=== PATIENT | female | born 1935 | race Caucasian/White ===

== ENCOUNTER 2017-01-04 13:50 | Emergency (ER) | payer OTHER ==
[~2017-01-04] VITALS: Ht 167.6 cm; Wt 64.0 kg
[~2017-01-04 13:50] MED LIST: ALPR1TAB2; ALPR1TAB2 PO; ASPI-515 PO; DABI150C PO; DIGO250T; GABA300C10 PO; HYDR-3240 PO; INSU100V8; MAGN400T26 PO; METF100010 PO; METO-95 PO; NATE120T2 PO; NICO1PAT5 TD; ONDA4TAB13 SL; PANT20TA3; VANC1VIA3 PO; [UNRECOGNIZED DRUG - REMARK] PO
[2017-01-04] MEDS ORDERED: HYDROcodone/APAP 5/325 TABLET PO ONE (15:00)
[2017-01-04] MEDS ORDERED: HYDROcodone/APAP 5/325 TABLET ONE (15:17)
[2017-01-04 16:43] VITALS: BP 139/66
== END 2017-01-04 17:17 | disposition home or self-care (01) ==
LOC: ED 17:15
DX: S20.212A Contusion of left front wall of thorax, initial encounter (principal); M54.89 Other dorsalgia; M79.89 Other specified soft tissue disorders; E11.9 Type 2 diabetes mellitus without complications; I10 Essential (primary) hypertension; Z95.0 Presence of cardiac pacemaker; W06.XXXA Fall from bed, initial encounter; Y93.89 Activity, other specified; Y99.8 Other external cause status; Y92.098 Other place in other non-institutional residence as the place of occurrence of the external cause
CPT/HCPCS: 99284

== ENCOUNTER 2017-01-09 20:52 | Emergency (ER) | payer OTHER ==
[~2017-01-09] VITALS: Ht 167.6 cm; Wt 65.0 kg
[2017-01-09] MEDS ORDERED: SODIUM CHLORIDE FLUSH 10ML SYR IVF ONE (22:00)
[2017-01-09] MEDS ORDERED: SODIUM CHLORIDE 0.9% 1,000ML IVBOLUS ONE (22:00)
[2017-01-09] MEDS ORDERED: ONDANSETRON 2MG/ML, 2ML IVPush ONE (22:00)
[2017-01-09 22:09] LABS: HEMOGLOBIN 11.4 g/dL (11.7-16.4)
[2017-01-09 22:21] LABS: ASPARTATE AMINO TRANSFERASE 10 U/L (15-37); BLOOD UREA NITROGEN 19 mg/dL (7-18)
[2017-01-09 22:27] LABS: IS PT STATUS REG ER OR PRE ER? YES
[2017-01-09] MEDS ORDERED: HYDROcodone/APAP 5/325 TABLET ONE (23:55)
[2017-01-10] MEDS ORDERED: HYDROcodone/APAP 5/325 TABLET PO ONE
[2017-01-10 00:14] VITALS: BP 135/79
== END 2017-01-10 00:20 | disposition home or self-care (01) ==
LOC: ED 01-10 00:19
DX: R19.7 Diarrhea, unspecified (principal); R11.0 Nausea; R10.9 Unspecified abdominal pain; I10 Essential (primary) hypertension; E11.9 Type 2 diabetes mellitus without complications
CPT/HCPCS: 36415; 74022; 80053; 81001; 83690; 84484; 85025; 87086; 96360; 99285; J7030

== ENCOUNTER 2018-09-04 10:13 | Inpatient (IN) | payer OTHER ==
[~2018-09-04] VITALS: Ht 162.6 cm; Wt 71.7 kg
[~2018-09-04 10:13] MED LIST changes: -DIGO250T; +DIGO250T PO; +NICO-487 TD; -NICO1PAT5 TD
[2018-09-04] MEDS ORDERED: SODIUM CHLORIDE FLUSH 10ML SYR IVF ONE (10:30)
[2018-09-04 10:57] LABS: BASOPHILS # (AUTO) 0.05 x10^3/uL (0-0.1); BASOPHILS % (AUTO) 0 % (0-1); EOSINOPHILS % (AUTO) 1 % (1-7); LYMPHOCYTES # (AUTO) 1.35 x10^3/uL (1-3.4); LYMPHOCYTES % (AUTO) 12 % (22-44); MD NO; MEAN CORPUSCULAR HEMOGLOBIN 29.7 pg (27.0-34.8); MEAN CORPUSCULAR HGB CONC 32.5 g/dL (32.4-35.8); MEAN CORPUSCULAR VOLUME 91.3 fL (80-100); MEAN PLATELET VOLUME 8.4 fL (7.4-10.4); MONOCYTES # (AUTO) 0.64 x10^3/uL (0.2-0.8); MONOCYTES % (AUTO) 6 % (2-9); NEUTROPHILS # (AUTO) 9.33 x10^3/uL (1.8-6.8); NEUTROPHILS % (AUTO) 81 % (42-75); PLATELET COUNT 342 x10^3/uL (130-400); RED CELL DISTRIBUTION WIDTH 16.3 % (9.6-15.2)
[2018-09-04] MEDS ORDERED: SODIUM CHLORIDE 0.9% 1,000ML IVBOLUS ONE (11:00)
[2018-09-04] MEDS ORDERED: GABA600T2 PO (11:01)
[2018-09-04] MEDS ORDERED: POTA10TA57 PO (11:01)
[2018-09-04] MEDS ORDERED: GLIM4TAB2 PO (11:01)
[2018-09-04] MEDS ORDERED: METF500T17 PO (11:01)
[2018-09-04 11:04] LABS: INTERNATIONAL NORMALIZED RATIO 1.05 (0.93-1.1); PROTHROMBIN TIME 10.9 Seconds (9.6-11.5)
[2018-09-04 11:07] LABS: ALBUMIN 3.4 g/dL (3.4-5.0); ANION GAP 8 mmol/L (5-15); CALCIUM 8.9 mg/dL (8.5-10.1); CHLORIDE 108 mmol/L (98-107)
[2018-09-04 11:11] LABS: ALANINE AMINOTRANSFERASE 15 U/L (12-78); ALKALINE PHOSPHATASE 63 U/L (45-117); CREATINE KINASE, TOTAL 169 U/L (26-192); CREATININE 0.84 mg/dL (0.55-1.02); TOTAL PROTEIN 8.3 g/dL (6.4-8.2); TROPONIN I < 0.015 ng/mL (0.000-0.045)
[2018-09-04] MEDS ORDERED: FURO-93 PO (11:32)
[2018-09-04] MEDS ORDERED: NS + 20MEQ KCL 1,000 ML IV SCH (12:36)
[2018-09-04] MEDS ORDERED: ONDANSETRON 2MG/ML, 2ML IVPush PRN (13:00)
[2018-09-04] MEDS ORDERED: ACETAMINOPHEN 325 MG TABLET PO PRN (13:00)
[2018-09-04] MEDS ORDERED: DOCUSATE 100 MG CAPSULE PO PRN (13:00)
[2018-09-04] MEDS ORDERED: DEXTROSE 4 GM TAB.CHEW PO PRN (13:00)
[2018-09-04] MEDS ORDERED: HYDROcodone/APAP 5/325 TABLET PO PRN (13:00)
[2018-09-04] MEDS ORDERED: GLUCAGON 1 MG IM PRN (13:00)
[2018-09-04] MEDS ORDERED: morphine SULFATE 10 MG/ML, 1ML IVPush PRN (13:00)
[2018-09-04] MEDS ORDERED: POLYETHYLENE GLYCOL 17 GM PACKET PO PRN (13:00)
[2018-09-04] MEDS ORDERED: DEXTROSE 50%, 50ML SYRINGE IVPush PRN (13:00)
[2018-09-04] MEDS ORDERED: hydrALAzine 20 MG/ML, 1ML IV PRN (13:30)
[2018-09-04] MEDS ORDERED: LABETALOL 5MG/ML, 20ML IVPush PRN (13:30)
[2018-09-04] MEDS ORDERED: ENALAPRILAT 1.25 MG/ML, 2ML IV PRN (13:30)
[2018-09-04] MEDS ORDERED: DIGOXIN 0.25 MG/ML, 2ML IVPush ONE (13:30)
[2018-09-04] MEDS ORDERED: DIGOXIN 0.25 MG/ML, 2ML ONE (14:02)
[2018-09-04 14:38] VITALS: BP 153/79
[2018-09-04] MEDS: GABAPENTIN 300 MG CAPSULE PO SCH ×2 (15:36→21:47)
[2018-09-04] MEDS: FUROSEMIDE 20 MG/2 ML IV SCH (15:58)
[2018-09-04] MEDS: DIGOXIN 0.25 MG TABLET PO SCH (15:58)
[2018-09-04] MEDS: METOPROLOL SUCCINATE 100 MG TAB.ER.24H PO SCH (16:01)
[2018-09-04] MEDS: NICOTINE 7 MG/24 HR PATCH.TD24 TD SCH (16:01)
[2018-09-04] MEDS: ASPIRIN 81 MG TABLET EC PO SCH (16:01)
[2018-09-04 16:15] LABS: CULTURE INDICATED? NO; MICROSCOPIC AUTO
[2018-09-04 17:10] VITALS: BP 178/94
[2018-09-04] MEDS: INSULIN LISPRO 100 UNITS/ML, PEN SQ-INSULIN SCH ×2 (17:45→21:48)
[2018-09-04 18:41] VITALS: BP 144/77
[2018-09-04] MEDS: SODIUM CHLORIDE FLUSH 10ML SYR IVF SCH (20:53)
[2018-09-04] MEDS: GLIMEPIRIDE 4 MG TABLET PO SCH (21:47)
[2018-09-04] MEDS: DABIGATRAN 150 MG CAPSULE PO SCH (21:48)
[2018-09-05 02:08] VITALS: BP 131/66
[2018-09-05 05:27] LABS: ANION GAP 9 mmol/L (5-15); CHLORIDE 112 mmol/L (98-107)
[2018-09-05 05:37] LABS: CALCIUM 7.7 mg/dL (8.5-10.1); CREATININE 0.74 mg/dL (0.55-1.02); TROPONIN I 0.016 ng/mL (0.000-0.045)
[2018-09-05] MEDS: INSULIN LISPRO 100 UNITS/ML, PEN SQ-INSULIN SCH ×4 (07:00→20:40)
[2018-09-05 07:53] VITALS: BP 116/73
[2018-09-05] MEDS: FUROSEMIDE 20 MG/2 ML IV SCH (08:28)
[2018-09-05] MEDS: SODIUM CHLORIDE FLUSH 10ML SYR IVF SCH ×2 (08:29→20:39)
[2018-09-05] MEDS: SENNA/DOCUSATE TABLET PO SCH (09:02)
[2018-09-05] MEDS: DIGOXIN 0.25 MG TABLET PO SCH (09:02)
[2018-09-05] MEDS: GABAPENTIN 300 MG CAPSULE PO SCH ×3 (09:02→20:40)
[2018-09-05] MEDS: METOPROLOL SUCCINATE 100 MG TAB.ER.24H PO SCH (09:02)
[2018-09-05] MEDS: GLIMEPIRIDE 4 MG TABLET PO SCH ×2 (09:02→20:40)
[2018-09-05] MEDS: DABIGATRAN 150 MG CAPSULE PO SCH (09:02)
[2018-09-05] MEDS: MAGNESIUM OXIDE 400 MG TABLET PO SCH ×2 (09:02→20:40)
[2018-09-05] MEDS: ASPIRIN 81 MG TABLET EC PO SCH (09:02)
[2018-09-05 13:47] VITALS: BP 133/62
[2018-09-05 14:58] LABS: HEMOGLOBIN A1C 9.1 % (4.2-6.3)
[2018-09-05] MEDS: NICOTINE 7 MG/24 HR PATCH.TD24 TD SCH (16:00)
[2018-09-05 18:58] LABS: CLOSTRIDIUM DIFFICILE ANTIGEN POSITIVE; CLOSTRIDIUM DIFFICILE TOXIN NEGATIVE (Negative)
[2018-09-05 19:30] VITALS: BP 135/62
[2018-09-06 01:42] LABS: BASOPHILS # (AUTO) 0.06 x10^3/uL (0-0.1); BASOPHILS % (AUTO) 1 % (0-1); EOSINOPHILS % (AUTO) 2 % (1-7); LYMPHOCYTES # (AUTO) 2.16 x10^3/uL (1-3.4); LYMPHOCYTES % (AUTO) 26 % (22-44); MD NO; MEAN CORPUSCULAR HEMOGLOBIN 29.8 pg (27.0-34.8); MEAN CORPUSCULAR HGB CONC 33.2 g/dL (32.4-35.8); MEAN CORPUSCULAR VOLUME 89.9 fL (80-100); MEAN PLATELET VOLUME 7.6 fL (7.4-10.4); MONOCYTES # (AUTO) 0.65 x10^3/uL (0.2-0.8); MONOCYTES % (AUTO) 8 % (2-9); NEUTROPHILS # (AUTO) 5.24 x10^3/uL (1.8-6.8); NEUTROPHILS % (AUTO) 63 % (42-75); PLATELET COUNT 321 x10^3/uL (130-400); RED BLOOD COUNT 3.77 x10^6/uL (3.82-5.3); RED CELL DISTRIBUTION WIDTH 16.1 % (9.6-15.2)
[2018-09-06 01:52] LABS: ALANINE AMINOTRANSFERASE 11 U/L (12-78); ALBUMIN 2.7 g/dL (3.4-5.0); ANION GAP 10 mmol/L (5-15); CALCIUM 7.8 mg/dL (8.5-10.1); CHLORIDE 109 mmol/L (98-107); CREATININE 0.71 mg/dL (0.55-1.02)
[2018-09-06 01:55] LABS: ALKALINE PHOSPHATASE 46 U/L (45-117); BILIRUBIN,TOTAL 0.6 mg/dL (0.2-1.0); TOTAL PROTEIN 7.1 g/dL (6.4-8.2)
[2018-09-06 01:57] VITALS: BP 121/77
[2018-09-06] MEDS: INSULIN LISPRO 100 UNITS/ML, PEN SQ-INSULIN SCH ×4 (08:04→20:46)
[2018-09-06 08:11] VITALS: BP 117/74
[2018-09-06 10:04] VITALS: BP 138/82
[2018-09-06] MEDS: GABAPENTIN 300 MG CAPSULE PO SCH ×3 (10:04→20:42)
[2018-09-06] MEDS: GLIMEPIRIDE 4 MG TABLET PO SCH ×2 (10:05→20:42)
[2018-09-06] MEDS: METOPROLOL SUCCINATE 100 MG TAB.ER.24H PO SCH (10:05)
[2018-09-06] MEDS: ASPIRIN 81 MG TABLET EC PO SCH (10:05)
[2018-09-06] MEDS: MAGNESIUM OXIDE 400 MG TABLET PO SCH (10:06)
[2018-09-06] MEDS: SENNA/DOCUSATE TABLET PO SCH (10:06)
[2018-09-06] MEDS: DIGOXIN 0.25 MG TABLET PO SCH (10:06)
[2018-09-06] MEDS: SODIUM CHLORIDE FLUSH 10ML SYR IVF SCH ×2 (10:06→20:47)
[2018-09-06 13:23] LABS: MICROSCOPIC INDICATED
[2018-09-06 13:32] VITALS: BP 127/75
[2018-09-06] MEDS: NICOTINE 7 MG/24 HR PATCH.TD24 TD SCH (16:12)
[2018-09-06 18:39] VITALS: BP 121/69
[2018-09-07 00:39] VITALS: BP 123/72
[2018-09-07 02:07] LABS: BASOPHILS # (AUTO) 0.07 x10^3/uL (0-0.1); BASOPHILS % (AUTO) 1 % (0-1); EOSINOPHILS # (AUTO) 0.23 x10^3/uL (0-0.4); EOSINOPHILS % (AUTO) 3 % (1-7); LYMPHOCYTES # (AUTO) 2.23 x10^3/uL (1-3.4); LYMPHOCYTES % (AUTO) 26 % (22-44); MD NO; MEAN CORPUSCULAR HEMOGLOBIN 30.5 pg (27.0-34.8); MEAN CORPUSCULAR HGB CONC 33.8 g/dL (32.4-35.8); MEAN CORPUSCULAR VOLUME 90.2 fL (80-100); MEAN PLATELET VOLUME 8.2 fL (7.4-10.4); MONOCYTES # (AUTO) 0.67 x10^3/uL (0.2-0.8); MONOCYTES % (AUTO) 8 % (2-9); NEUTROPHILS % (AUTO) 63 % (42-75); PLATELET COUNT 327 x10^3/uL (130-400); RED BLOOD COUNT 3.86 x10^6/uL (3.82-5.3); RED CELL DISTRIBUTION WIDTH 15.8 % (9.6-15.2)
[2018-09-07 02:12] LABS: ALANINE AMINOTRANSFERASE 12 U/L (12-78); ALBUMIN 2.8 g/dL (3.4-5.0); ANION GAP 10 mmol/L (5-15); CALCIUM 8.2 mg/dL (8.5-10.1); CHLORIDE 109 mmol/L (98-107); CREATININE 0.77 mg/dL (0.55-1.02)
[2018-09-07 02:14] LABS: ALKALINE PHOSPHATASE 50 U/L (45-117); BILIRUBIN,TOTAL 0.6 mg/dL (0.2-1.0); TOTAL PROTEIN 7.3 g/dL (6.4-8.2)
[2018-09-07] MEDS: INSULIN LISPRO 100 UNITS/ML, PEN SQ-INSULIN SCH ×4 (07:00→23:01)
[2018-09-07 07:50] VITALS: BP 145/90
[2018-09-07] MEDS: GABAPENTIN 300 MG CAPSULE PO SCH ×3 (08:58→22:26)
[2018-09-07] MEDS: METOPROLOL SUCCINATE 100 MG TAB.ER.24H PO SCH (08:58)
[2018-09-07] MEDS: DIGOXIN 0.25 MG TABLET PO SCH (08:58)
[2018-09-07] MEDS: GLIMEPIRIDE 4 MG TABLET PO SCH ×2 (08:58→22:26)
[2018-09-07] MEDS: CEFTRIAXONE PMX 1GM/50ML 50 ML IV SCH (08:59)
[2018-09-07] MEDS: ASPIRIN 81 MG TABLET EC PO SCH (08:59)
[2018-09-07] MEDS: SENNA/DOCUSATE TABLET PO SCH (09:00)
[2018-09-07] MEDS: SODIUM CHLORIDE FLUSH 10ML SYR IVF SCH ×2 (09:00→22:26)
[2018-09-07] MEDS ORDERED: DILTIAZEM 60 MG TABLET PO ONE (11:00)
[2018-09-07] MEDS: SODIUM CHLORIDE 0.9% 500 ML IV SCH ×2 (13:00→15:00)
[2018-09-07 13:38] VITALS: BP 127/70
[2018-09-07] MEDS: NICOTINE 7 MG/24 HR PATCH.TD24 TD SCH (16:00)
[2018-09-07] MEDS: SODIUM CHLORIDE 0.9% 1,000 ML IV SCH (16:55)
[2018-09-07 19:38] VITALS: BP 132/74
[2018-09-07] MEDS: DABIGATRAN 150 MG CAPSULE PO SCH (22:26)
[2018-09-08] MEDS: SODIUM CHLORIDE 0.9% 1,000 ML IV SCH ×2 (00:19→08:58)
[2018-09-08 01:09] VITALS: BP 129/68
[2018-09-08 01:51] LABS: ANION GAP 10 mmol/L (5-15); CALCIUM 7.9 mg/dL (8.5-10.1); CHLORIDE 111 mmol/L (98-107); CREATININE 0.86 mg/dL (0.55-1.02)
[2018-09-08] MEDS: INSULIN LISPRO 100 UNITS/ML, PEN SQ-INSULIN SCH ×3 (07:00→16:00)
[2018-09-08 07:02] VITALS: BP 138/82
[2018-09-08 08:50] VITALS: BP 153/74
[2018-09-08] MEDS: DIGOXIN 0.25 MG TABLET PO SCH (08:54)
[2018-09-08] MEDS: GLIMEPIRIDE 4 MG TABLET PO SCH (08:55)
[2018-09-08] MEDS: GABAPENTIN 300 MG CAPSULE PO SCH ×2 (08:55→16:56)
[2018-09-08] MEDS: METOPROLOL SUCCINATE 100 MG TAB.ER.24H PO SCH (08:55)
[2018-09-08] MEDS: ASPIRIN 81 MG TABLET EC PO SCH (08:55)
[2018-09-08] MEDS: DABIGATRAN 150 MG CAPSULE PO SCH (08:56)
[2018-09-08] MEDS: SENNA/DOCUSATE TABLET PO SCH (08:57)
[2018-09-08] MEDS: CEFTRIAXONE PMX 1GM/50ML 50 ML IV SCH (08:58)
[2018-09-08] MEDS: SODIUM CHLORIDE FLUSH 10ML SYR IVF SCH (08:59)
[2018-09-08] MEDS ORDERED: SULFAMETH./TRIMETHOPRIM DS 800MG/160MG TABLET PO SCH (11:00)
[2018-09-08] MEDS ORDERED: DIGO250T PO (11:00)
[2018-09-08] MEDS ORDERED: SULF-169 PO (11:00)
[2018-09-08 12:54] VITALS: BP 136/74
[2018-09-08] MEDS: NICOTINE 7 MG/24 HR PATCH.TD24 TD SCH (16:56)
== END 2018-09-08 17:42 | DRG 871 ==
LOC: SUATTDRO 12:34 → ED 12:49 → EDIP 12:50 → 5SO 14:03 → 3NE 09-07 16:09
PROVIDERS: ADMIT Family Medicine; ATTEND Family Medicine
PROC: 0T9B70Z Drainage of Bladder with Drainage Device, Via Natural or Artificial Opening (ICD-10-PCS; principal; 2018-09-04)
PROC: 4B02XSZ Measurement of Cardiac Pacemaker, External Approach (ICD-10-PCS; 2018-09-06)
DX: A41.9 Sepsis, unspecified organism (principal); G93.41 Metabolic encephalopathy; I47.2 Ventricular tachycardia; D68.69 Other thrombophilia; N39.0 Urinary tract infection, site not specified; Q21.1 Atrial septal defect; I08.2 Rheumatic disorders of both aortic and tricuspid valves; R62.7 Adult failure to thrive; E11.65 Type 2 diabetes mellitus with hyperglycemia; E78.5 Hyperlipidemia, unspecified; E83.42 Hypomagnesemia; F17.200 Nicotine dependence, unspecified, uncomplicated; I10 Essential (primary) hypertension; I48.2 Chronic atrial fibrillation; Z66 Do not resuscitate; Z79.01 Long term (current) use of anticoagulants; Z79.02 Long term (current) use of antithrombotics/antiplatelets; Z86.19 Personal history of other infectious and parasitic diseases; Z95.0 Presence of cardiac pacemaker; R31.9 Hematuria, unspecified; D73.89 Other diseases of spleen; Z79.899 Other long term (current) drug therapy; Z79.82 Long term (current) use of aspirin; W19.XXXA Unspecified fall, initial encounter; Y93.89 Activity, other specified; Y92.89 Other specified places as the place of occurrence of the external cause; Y99.8 Other external cause status; Z98.41 Cataract extraction status, right eye
CPT/HCPCS: 36415; 70450; 71045; 74178; 80048; 80053; 80162; 81001; 82550; 82607; 82962; 83036; 83605; 83735; 83880; 84100; 84443; 84484; 85014; 85018; 85025; 85610; 85730; 87086; 87324; 87493; 93005; 93306; 99285; G0378; J0696; J3480; J1160; J1815; J1940; J7030; J7040

== ENCOUNTER 2018-10-30 16:05 | Inpatient (IN) | payer OTHER ==
[~2018-10-30] VITALS: Ht 167.6 cm; Wt 71.6 kg
[~2018-10-30 16:05] MED LIST changes: +FURO-93 PO; +GABA600T7 PO; +GLIM4TAB2 PO; +METF500T17 PO; +POTA10TA57 PO; +SULF-169 PO
--- NOTE | 2018-10-30 16:19 | NUR ---
PATIENT BIB [facility], [facility] 2 DAYS AGO, NO LOC, DENIES HEAD/NECK PAIN, C/O 9/10 RIGHT ANKLE SWELLING/PAIN SINCE. PMH: DM, PACEMAKER, A-FIB. A+OX4. 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 PATIENT REFUSING IV AND PAIN MEDS FOR EMS PER [facility]. NADN. DENIES CP/SOB. AWAITING MD ORDERS, CALL LIGHT WITHIN REACH.
[2018-10-30] MEDS ORDERED: DILTIAZEM 5 MG/ML, 5ML ONE (16:43)
--- NOTE | 2018-10-30 16:47 | NUR ---
XRAY AT BEDSIDE.
[2018-10-30 16:54] LABS: BASOPHILS # (AUTO) 0.07 x10^3/uL (0-0.1); BASOPHILS % (AUTO) 1 % (0-1); EOSINOPHILS # (AUTO) 0.11 x10^3/uL (0-0.4); EOSINOPHILS % (AUTO) 2 % (1-7); LYMPHOCYTES # (AUTO) 1.83 x10^3/uL (1-3.4); LYMPHOCYTES % (AUTO) 31 % (22-44); MD NO; MEAN CORPUSCULAR HEMOGLOBIN 30.5 pg (27.0-34.8); MEAN CORPUSCULAR HGB CONC 33.5 g/dL (32.4-35.8); MEAN CORPUSCULAR VOLUME 91.1 fL (80-100); MEAN PLATELET VOLUME 8.6 fL (7.4-10.4); MONOCYTES # (AUTO) 0.71 x10^3/uL (0.2-0.8); MONOCYTES % (AUTO) 12 % (2-9); NEUTROPHILS # (AUTO) 3.14 x10^3/uL (1.8-6.8); NEUTROPHILS % (AUTO) 54 % (42-75); PLATELET COUNT 300 x10^3/uL (130-400); RED BLOOD COUNT 3.82 x10^6/uL (3.82-5.3); RED CELL DISTRIBUTION WIDTH 15.9 % (9.6-15.2)
[2018-10-30] MEDS ORDERED: DILTIAZEM 125 MG in DEXTROSE 5% 100 ML IV SCH (17:00)
[2018-10-30] MEDS ORDERED: DILTIAZEM 5 MG/ML, 5ML IV ONE (17:00)
[2018-10-30 17:06] LABS: INTERNATIONAL NORMALIZED RATIO 1.31 (0.93-1.1); PROTHROMBIN TIME 13.7 Seconds (9.6-11.5)
[2018-10-30 17:07] LABS: ALANINE AMINOTRANSFERASE 11 U/L (12-78); ALBUMIN 3.1 g/dL (3.4-5.0); ANION GAP 8 mmol/L (5-15); CALCIUM 8.3 mg/dL (8.5-10.1); CHLORIDE 109 mmol/L (98-107); CREATININE 1.16 mg/dL (0.55-1.02)
[2018-10-30 17:11] LABS: ALKALINE PHOSPHATASE 55 U/L (45-117); BILIRUBIN,TOTAL 0.8 mg/dL (0.2-1.0); TROPONIN I < 0.015 ng/mL (0.000-0.045)
[2018-10-30] MEDS ORDERED: SODIUM CHLORIDE 0.9% 1,000ML IVBOLUS ONE (17:30)
[2018-10-30] MEDS ORDERED: ONDANSETRON 2MG/ML, 2ML IVPush ONE (17:30)
[2018-10-30] MEDS ORDERED: ONDANSETRON 2MG/ML, 2ML ONE (17:45)
[2018-10-30] MEDS ORDERED: MORPHINE SULFATE 4 MG/ML, 1ML ONE (17:45)
[2018-10-30] MEDS: MORPHINE SULFATE 4 MG/ML, 1ML IVPush PRN ×2 (17:47→20:02)
[2018-10-30] MEDS ORDERED: DIGO125T PO (17:56)
[2018-10-30] MEDS ORDERED: SODIUM CHLORIDE FLUSH 10ML SYR IVF ONE (18:00)
[2018-10-30] MEDS ORDERED: SODIUM CHLORIDE FLUSH 10ML SYR IVF PRN (18:30)
[2018-10-30] MEDS ORDERED: ONDANSETRON 2MG/ML, 2ML IVPush PRN (19:00)
[2018-10-30] MEDS ORDERED: hydrALAzine 20 MG/ML, 1ML IVPush PRN (19:00)
[2018-10-30] MEDS ORDERED: ONDANSETRON ODT 4 MG PO PRN (19:00)
[2018-10-30] MEDS ORDERED: morphine SULFATE 10 MG/ML, 1ML IVPush PRN (19:00)
[2018-10-30] MEDS ORDERED: HYDROcodone/APAP 5/325 TABLET PO PRN (19:00)
--- NOTE | 2018-10-30 19:15 | NUR ---
STOPPING DILTIAZEM PER ORDER, FOR SBP LESS THAN 100. BP 96/48. HEART RATE IN 80S AND 90S AT THIS TIME.
[2018-10-30] MEDS ORDERED: DEXTROSE 4 GM TAB.CHEW PO PRN (19:30)
[2018-10-30] MEDS ORDERED: DEXTROSE 50%, 50ML SYRINGE IVPush PRN (19:30)
[2018-10-30] MEDS ORDERED: DILTIAZEM 125 MG in SODIUM CHLORIDE 0.9% 100 ML IV PRN (19:30)
[2018-10-30] MEDS ORDERED: GLUCAGON 1 MG IM PRN (19:30)
--- NOTE | 2018-10-30 20:28 | NUR ---
[facility] TELEPHONE HAND-OFF REPORT GIVEN TO SARAH SHEEHAN. PATIENT READY TO GO TO HOSPITAL ROOM.
[2018-10-30 21:01] VITALS: BP 106/61
[2018-10-30] MEDS: SODIUM CHLORIDE FLUSH 10ML SYR IVF SCH (21:35)
[2018-10-30] MEDS: metFORMIN 500 MG TABLET PO SCH (21:35)
[2018-10-30] MEDS: DABIGATRAN 150 MG CAPSULE PO SCH (21:35)
[2018-10-30] MEDS: NICOTINE 7 MG/24 HR PATCH.TD24 TD SCH (22:10)
[2018-10-30] MEDS: INSULIN LISPRO 100 UNITS/ML, PEN SQ-INSULIN SCH (22:11)
[2018-10-30] MEDS: POTASSIUM CHLORIDE 10 MEQ in SODIUM CHLORIDE 0.9% 1,000 ML IV SCH (22:11)
[2018-10-30] MEDS ORDERED: DILTIAZEM 125 MG in SODIUM CHLORIDE 0.9% 100 ML IV SCH (22:30)
[2018-10-30 23:04] LABS: TROPONIN I < 0.015 ng/mL (0.000-0.045)
[2018-10-31] VITALS (7 sets, daily range): BP systolic 86–100; BP diastolic 51–71
[2018-10-31] MEDS: ACETAMINOPHEN 325 MG TABLET PO PRN ×2 (04:06→11:48)
[2018-10-31 05:05] LABS: BASOPHILS # (AUTO) 0.07 x10^3/uL (0-0.1); BASOPHILS % (AUTO) 1 % (0-1); EOSINOPHILS # (AUTO) 0.15 x10^3/uL (0-0.4); EOSINOPHILS % (AUTO) 3 % (1-7); LYMPHOCYTES # (AUTO) 2.01 x10^3/uL (1-3.4); LYMPHOCYTES % (AUTO) 36 % (22-44); MD NO; MEAN CORPUSCULAR HEMOGLOBIN 30.9 pg (27.0-34.8); MEAN CORPUSCULAR HGB CONC 33.8 g/dL (32.4-35.8); MEAN CORPUSCULAR VOLUME 91.5 fL (80-100); MEAN PLATELET VOLUME 8.7 fL (7.4-10.4); MONOCYTES # (AUTO) 0.72 x10^3/uL (0.2-0.8); MONOCYTES % (AUTO) 13 % (2-9); NEUTROPHILS # (AUTO) 2.57 x10^3/uL (1.8-6.8); NEUTROPHILS % (AUTO) 47 % (42-75); PLATELET COUNT 254 x10^3/uL (130-400); RED BLOOD COUNT 3.41 x10^6/uL (3.82-5.3); RED CELL DISTRIBUTION WIDTH 16.2 % (9.6-15.2)
[2018-10-31 05:09] LABS: ANION GAP 8 mmol/L (5-15); CALCIUM 8.3 mg/dL (8.5-10.1); CHLORIDE 111 mmol/L (98-107); CREATININE 1.16 mg/dL (0.55-1.02)
[2018-10-31] MEDS: INSULIN LISPRO 100 UNITS/ML, PEN SQ-INSULIN SCH ×4 (07:00→20:15)
[2018-10-31] MEDS: metFORMIN 500 MG TABLET PO SCH ×2 (08:51→19:52)
[2018-10-31] MEDS: ASPIRIN 81 MG TABLET EC PO SCH (08:51)
[2018-10-31] MEDS: DABIGATRAN 150 MG CAPSULE PO SCH ×2 (08:51→19:52)
[2018-10-31] MEDS: SODIUM CHLORIDE FLUSH 10ML SYR IVF SCH ×2 (09:00→21:00)
[2018-10-31] MEDS ORDERED: FUROSEMIDE 20 MG TABLET PO SCH (09:00)
[2018-10-31] MEDS: POTASSIUM CHLORIDE 10 MEQ in SODIUM CHLORIDE 0.9% 1,000 ML IV SCH (11:19)
[2018-10-31] MEDS: METOPROLOL SUCCINATE 100 MG TAB.ER.24H PO SCH (11:20)
[2018-10-31] MEDS ORDERED: DILTIAZEM 5 MG/ML, 5ML IVPush ONE (18:30)
[2018-10-31] MEDS: NICOTINE 7 MG/24 HR PATCH.TD24 TD SCH (19:00)
[2018-11-01 01:00] VITALS: BP 92/64
[2018-11-01] MEDS ORDERED: DILTIAZEM 125 MG in SODIUM CHLORIDE 0.9% 100 ML IV SCH (01:30)
[2018-11-01] MEDS: POTASSIUM CHLORIDE 10 MEQ in SODIUM CHLORIDE 0.9% 1,000 ML IV SCH ×2 (03:40→17:14)
[2018-11-01 05:09] LABS: ANION GAP 6 mmol/L (5-15); CALCIUM 7.6 mg/dL (8.5-10.1); CHLORIDE 113 mmol/L (98-107); CREATININE 1.09 mg/dL (0.55-1.02)
[2018-11-01] MEDS: METOPROLOL SUCCINATE 100 MG TAB.ER.24H PO SCH (05:43)
[2018-11-01 07:33] VITALS: BP 103/68
[2018-11-01] MEDS: INSULIN LISPRO 100 UNITS/ML, PEN SQ-INSULIN SCH ×4 (07:33→20:58)
[2018-11-01 09:01] VITALS: BP 99/70
[2018-11-01] MEDS: DABIGATRAN 150 MG CAPSULE PO SCH ×2 (09:36→20:58)
[2018-11-01] MEDS: SODIUM CHLORIDE FLUSH 10ML SYR IVF SCH ×2 (09:36→20:56)
[2018-11-01] MEDS: ASPIRIN 81 MG TABLET EC PO SCH (09:36)
[2018-11-01] MEDS: metFORMIN 500 MG TABLET PO SCH ×2 (09:36→20:58)
[2018-11-01] MEDS: DILTIAZEM 60 MG TABLET PO SCH ×3 (10:36→20:56)
[2018-11-01] MEDS: DIGOXIN 0.125 MG TABLET PO SCH (10:38)
[2018-11-01 13:51] VITALS: BP 102/48
[2018-11-01 17:17] VITALS: BP 111/70
[2018-11-01] MEDS: NICOTINE 7 MG/24 HR PATCH.TD24 TD SCH (17:17)
[2018-11-01 19:48] VITALS: BP 110/62
[2018-11-02 01:02] VITALS: BP 99/65
[2018-11-02] MEDS ORDERED: DILTIAZEM 125 MG in SODIUM CHLORIDE 0.9% 100 ML IV SCH (01:30)
[2018-11-02] MEDS: METOPROLOL SUCCINATE 100 MG TAB.ER.24H PO SCH (05:44)
[2018-11-02 08:15] VITALS: BP 118/63
[2018-11-02] MEDS: INSULIN LISPRO 100 UNITS/ML, PEN SQ-INSULIN SCH ×4 (08:17→21:00)
[2018-11-02] MEDS: DILTIAZEM 60 MG TABLET PO SCH ×3 (09:00→19:55)
[2018-11-02] MEDS: ASPIRIN 81 MG TABLET EC PO SCH (09:00)
[2018-11-02] MEDS: metFORMIN 500 MG TABLET PO SCH ×2 (09:00→19:54)
[2018-11-02] MEDS: DABIGATRAN 150 MG CAPSULE PO SCH ×2 (09:00→21:00)
[2018-11-02] MEDS: DIGOXIN 0.125 MG TABLET PO SCH (09:00)
[2018-11-02] MEDS: SODIUM CHLORIDE FLUSH 10ML SYR IVF SCH ×2 (09:05→21:00)
[2018-11-02 09:09] LABS: ANION GAP 4 mmol/L (5-15); CALCIUM 8.6 mg/dL (8.5-10.1); CHLORIDE 112 mmol/L (98-107); CREATININE 1.05 mg/dL (0.55-1.02)
[2018-11-02] MEDS: POTASSIUM CHLORIDE 10 MEQ in SODIUM CHLORIDE 0.9% 1,000 ML IV SCH ×2 (10:08→21:00)
[2018-11-02] MEDS ORDERED: DILT60TA27 PO (13:23)
[2018-11-02] MEDS ORDERED: QUETIAPINE 25MG TABLET PO PRN (13:30)
[2018-11-02] MEDS ORDERED: PHARMACY INSTRUCTION MC PRN (13:30)
[2018-11-02] MEDS ORDERED: INSTRUCTION SEE COMMENTS XX PRN (13:30)
[2018-11-02 13:48] VITALS: BP 109/46
[2018-11-02] MEDS: NICOTINE 7 MG/24 HR PATCH.TD24 TD SCH (17:27)
[2018-11-02 19:25] VITALS: BP 100/63
[2018-11-02] MEDS: MELATONIN 3 MG TABLET PO SCH (19:54)
[2018-11-03 00:22] VITALS: BP 100/60
[2018-11-03 05:29] VITALS: BP 133/55
[2018-11-03] MEDS: METOPROLOL SUCCINATE 100 MG TAB.ER.24H PO SCH (05:38)
[2018-11-03] MEDS: INSULIN LISPRO 100 UNITS/ML, PEN SQ-INSULIN SCH ×4 (07:00→20:43)
[2018-11-03 08:00] VITALS: BP 109/72
[2018-11-03] MEDS: DIGOXIN 0.125 MG TABLET PO SCH (08:14)
[2018-11-03] MEDS: metFORMIN 500 MG TABLET PO SCH ×2 (08:14→20:44)
[2018-11-03] MEDS: DABIGATRAN 150 MG CAPSULE PO SCH ×2 (08:14→20:37)
[2018-11-03] MEDS: ASPIRIN 81 MG TABLET EC PO SCH (08:14)
[2018-11-03] MEDS: DILTIAZEM 60 MG TABLET PO SCH ×3 (08:14→20:37)
[2018-11-03] MEDS: SODIUM CHLORIDE FLUSH 10ML SYR IVF SCH ×2 (08:19→20:38)
[2018-11-03] MEDS: POTASSIUM CHLORIDE 10 MEQ in SODIUM CHLORIDE 0.9% 1,000 ML IV SCH ×2 (11:20→20:46)
[2018-11-03] MEDS ORDERED: DOCUSATE 100 MG CAPSULE PO SCH (12:00)
[2018-11-03] MEDS ORDERED: DOCUSATE 50 MG/5 ML, 10ML UDC NG SCH (12:00)
[2018-11-03] MEDS ORDERED: BISACODYL 10 MG SUPP PR PRN ×2 (12:00→12:30)
[2018-11-03] MEDS ORDERED: LACTULOSE 20 GM/30 ML UDC PO PRN ×2 (12:00→12:30)
[2018-11-03 12:26] VITALS: BP 109/63
[2018-11-03] MEDS ORDERED: LACTULOSE 20 GM/30 ML UDC ONE (12:28)
[2018-11-03] MEDS ORDERED: DOCUSATE 100 MG CAPSULE PO PRN (12:30)
[2018-11-03] MEDS ORDERED: SENNA/DOCUSATE TABLET PO PRN (12:30)
[2018-11-03 17:04] VITALS: BP 135/89
[2018-11-03] MEDS: NICOTINE 7 MG/24 HR PATCH.TD24 TD SCH (19:00)
[2018-11-03] MEDS: MELATONIN 3 MG TABLET PO SCH (20:37)
[2018-11-03 20:42] VITALS: BP 116/82
[2018-11-03] MEDS ORDERED: SENNA/DOCUSATE TABLET PO SCH (21:00)
[2018-11-04 03:11] VITALS: BP 130/73
[2018-11-04] MEDS: METOPROLOL SUCCINATE 100 MG TAB.ER.24H PO SCH (03:16)
[2018-11-04] MEDS: INSULIN LISPRO 100 UNITS/ML, PEN SQ-INSULIN SCH ×2 (07:00→11:00)
[2018-11-04 08:32] VITALS: BP 123/82
[2018-11-04] MEDS: DIGOXIN 0.125 MG TABLET PO SCH (08:49)
[2018-11-04] MEDS: DILTIAZEM 60 MG TABLET PO SCH (08:49)
[2018-11-04] MEDS: metFORMIN 500 MG TABLET PO SCH (08:49)
[2018-11-04] MEDS: DABIGATRAN 150 MG CAPSULE PO SCH (08:49)
[2018-11-04] MEDS: ASPIRIN 81 MG TABLET EC PO SCH (08:49)
[2018-11-04] MEDS: SODIUM CHLORIDE FLUSH 10ML SYR IVF SCH (08:49)
[2018-11-04] MEDS: POTASSIUM CHLORIDE 10 MEQ in SODIUM CHLORIDE 0.9% 1,000 ML IV SCH (13:00)
== END 2018-11-04 18:46 | disposition home health service (06) | DRG 543 ==
LOC: ED 18:16 → EDIP 18:29 → 5SO 20:46 → 4EST 11-03 04:03
PROVIDERS: ADMIT Family Medicine; ATTEND Family Medicine
PROC: 2W3QX1Z Immobilization of Right Lower Leg using Splint (ICD-10-PCS; principal; 2018-10-30)
DX: M80.071A Age-related osteoporosis with current pathological fracture, right ankle and foot, initial encounter for fracture (principal); N17.9 Acute kidney failure, unspecified; D68.69 Other thrombophilia; I50.22 Chronic systolic (congestive) heart failure; I48.2 Chronic atrial fibrillation; Z79.02 Long term (current) use of antithrombotics/antiplatelets; Z95.0 Presence of cardiac pacemaker; E11.9 Type 2 diabetes mellitus without complications; E86.0 Dehydration; F03.90 Unspecified dementia, unspecified severity, without behavioral disturbance, psychotic disturbance, mood disturbance, and anxiety; F17.210 Nicotine dependence, cigarettes, uncomplicated; I49.5 Sick sinus syndrome; I11.0 Hypertensive heart disease with heart failure; W18.39XA Other fall on same level, initial encounter; Y92.89 Other specified places as the place of occurrence of the external cause; Y99.8 Other external cause status; Y93.K1 Activity, walking an animal; Z66 Do not resuscitate; Z79.01 Long term (current) use of anticoagulants; Z79.84 Long term (current) use of oral hypoglycemic drugs; I95.9 Hypotension, unspecified
CPT/HCPCS: 36415; 71045; 80048; 80053; 82962; 83880; 84484; 85025; 85610; 85730; 93005; 96365; 96375; G0378; J2405; J3480; 92523-GN; J1815; J7030